=== PATIENT | male | born 1995 | race Caucasian/White ===

== ENCOUNTER 2018-07-18 12:40 | Emergency (ER) | payer OTHER ==
[~2018-07-18] VITALS: Ht 167.6 cm; Wt 68.2 kg
[2018-07-18 12:41] VITALS: BP 143/88
[2018-07-18] MEDS ORDERED: IBUPROFEN 600 MG TAB PO ONE (13:15)
== END 2018-07-18 13:19 | disposition home or self-care (01) ==
LOC: M ED 12:40
DX: S00.552A Superficial foreign body of oral cavity, initial encounter (principal); X58.XXXA Exposure to other specified factors, initial encounter; Y92.9 Unspecified place or not applicable; Y93.9 Activity, unspecified; Y99.9 Unspecified external cause status

== ENCOUNTER 2019-03-02 09:54 | Emergency (ER) | payer OTHER ==
[~2019-03-02] VITALS: Ht 165.1 cm; Wt 65.9 kg
[2019-03-02] MEDS ORDERED: ONDANSETRON 4 MG ORAL DISINTEGRATING TAB (Q0162 PER 1MG) PO ONE (10:15)
[2019-03-02] MEDS ORDERED: ONDA4TAB6 PO (11:02)
[2019-03-02 11:17] VITALS: BP 138/83
[2019-03-03] MEDS ORDERED: REGL10TA6 PO (17:59)
== END 2019-03-02 11:19 | disposition home or self-care (01) ==
LOC: M ED 09:54
DX: R11.2 Nausea with vomiting, unspecified (principal); R19.7 Diarrhea, unspecified; T62.91XA Toxic effect of unspecified noxious substance eaten as food, accidental (unintentional), initial encounter; X58.XXXA Exposure to other specified factors, initial encounter; Y92.89 Other specified places as the place of occurrence of the external cause
CPT/HCPCS: 99283; Q0162

== ENCOUNTER 2019-03-03 13:56 | Emergency (ER) | payer OTHER ==
[~2019-03-03] VITALS: Ht 165.1 cm; Wt 61.2 kg
[~2019-03-03 13:56] MED LIST: ONDA4TAB6 PO
[2019-03-03] MEDS ORDERED: PROMETHAZINE INJ 25 MG/ML VIAL (J2550) IV ONE (14:30)
[2019-03-03] MEDS ORDERED: NS 1,000 ML IV ONE (14:30)
[2019-03-03 15:02] LABS: BASO # 0.1 10^3/uL (0.0-0.2); BASO % 0.4 % (0.0-1.0); HEMATOCRIT 47.8 % (42.0-52.0); LYMPH # 1.1 10^3/uL (1.5-6.5); LYMPH % 7.8 % (24.0-44.0); MEAN CORPUSCULAR HEMOGLOBIN 29.7 pg (27.0-33.0); MEAN CORPUSCULAR HGB CONC 33.5 g/dl (32.0-36.5); MEAN CORPUSCULAR VOLUME 88.7 fl (80.0-96.0); MONO # 1.2 10^3/uL (0.0-0.8); MONO % 8.1 % (0.0-5.0); NEUTROPHILS # 11.9 10^3/uL (1.8-7.7); NEUTROPHILS % 83.1 % (36.0-66.0); PLATELET COUNT, AUTOMATED 196 10^3/uL (150-450); RED BLOOD COUNT 5.39 10^6/uL (4.30-6.10); WHITE BLOOD COUNT 14.3 10^3/uL (4.0-10.0)
[2019-03-03 15:24] LABS: ALBUMIN 4.6 GM/DL (3.2-5.2); ALT/SGPT 17 U/L (12-78); BILIRUBIN,DIRECT 0.3 MG/DL (0.0-0.2); BILIRUBIN,TOTAL 1.2 MG/DL (0.2-1.0); BLOOD UREA NITROGEN 11 MG/DL (7-18); CALCIUM LEVEL 9.3 MG/DL (8.5-10.1); CARBON DIOXIDE LEVEL 28 MEQ/L (21-32); CHLORIDE LEVEL 98 MEQ/L (98-107); CREATININE FOR GFR 1.29 MG/DL (0.70-1.30); GLOMERULAR FILTRATION RATE > 60.0 (>60); GLUCOSE, FASTING 97 MG/DL (70-100); POTASSIUM SERUM 4.1 MEQ/L (3.5-5.1); SODIUM LEVEL 133 MEQ/L (136-145); TOTAL PROTEIN 8.8 GM/DL (6.4-8.2)
[2019-03-03] MEDS ORDERED: KETOROLAC 30 MG/ML VIAL (J1885) IV ONE (16:00)
[2019-03-03] MEDS ORDERED: ONDANSETRON 4MG/2ML VIAL (J2405) IV ONE (16:45)
[2019-03-03] MEDS ORDERED: REGL10TA6 PO (17:59)
[2019-03-03 18:11] VITALS: BP 134/74
--- NOTE | 2019-03-04 07:39 | REP ---
RIGHT UPPER QUADRANT ULTRASOUND: Real-time sonographic evaluation of the right upper quadrant performed. The gallbladder demonstrates no evidence of intraluminal sludge or calculi, wall thickening or pericholecystic fluid. There is no intrahepatic or extrahepatic biliary dilatation, common bile duct measuring 3 mm. Liver and pancreas demonstrate no gross mass. Right kidney demonstrates no hydronephrosis with normal size 10.3 cm in length. No ascites is seen. IMPRESSION: Negative right upper quadrant ultrasound. Electronically Signed by Ramiro Waterman MD 03/04/2019 10:11 A
== END 2019-03-03 18:12 | disposition home or self-care (01) ==
LOC: M ED 13:56
DX: R11.2 Nausea with vomiting, unspecified (principal); R19.7 Diarrhea, unspecified
CPT/HCPCS: 76705; 80048; 80076; 85025; 87507; 96361; 96374; 96375; 99284; J1885; J2405